=== PATIENT | female | born 1985 | race Caucasian/White ===

== ENCOUNTER 2017-06-08 20:02 | Emergency (ER) | payer OTHER ==
[~2017-06-08] VITALS: Ht 167.6 cm; Wt 85.6 kg
[~2017-06-08 20:02] MED LIST: CIPRO500 MG PO; FLAGYL500 MG PO; K-DUR20 MEQ PO; NO MEDS; NOHOMEMEDS; NORCO 5/3251 TABLET PO; PREDNISONE20 MG PO; PRILOSEC40 MG PO; ULTRAM50 MG PO; ZOFRAN ODT4 MG PO
[2017-06-08 20:41] LABS: HEMATOCRIT 40.5 % (36.0-46.0); MCH 30.6 PG (29.0-34.0); MCHC 33.8 G/DL (30.0-36.0); MCV 90.6 FL (83-99); MEAN PLAT.VOLUME 10.7 uM^3 (9.5-12.4); PLATELET COUNT 298 K/uL (156-360); RBC DIS.WIDTH-CV 12.2 % (11.8-14.6); RBC DIS.WIDTH-SD 40.5 % (39-53); RED BLOOD COUNT 4.47 M/uL (3.80-5.20); WHITE BLOOD COUNT 4.4 K/uL (4.1-10.2)
[2017-06-08 20:52] LABS: CHLORIDE 108 mEq/L (99-109); POTASSIUM 3.2 mEq/L (3.7-5.4); SODIUM 140 mEq/L (136-147)
[2017-06-08 20:54] LABS: GLUCOSE 101 mg/dL (70-99)
[2017-06-08 20:55] LABS: ANION GAP 10 MEQ/L (2-14)
[2017-06-08 20:56] LABS: TOTAL BILIRUBIN 0.3 mg/dL (0.0-1.0)
[2017-06-08 20:57] LABS: ALKALINE PHOSPHATASE 44 IU/L (3-129)
[2017-06-08 20:58] LABS: GFR ESTIMATE (CALCULATED) > 59 mL/min/
[2017-06-08 20:59] LABS: UREA NITROGEN (BUN) 7 mg/dL (9-23)
[2017-06-08 21:07] LABS: QUANTITATIVE HCG < 4.0 MIU/ML
[2017-06-08 21:34] LABS: ADD MIUA? YES; BILIRUBIN NEGATIVE; BLOOD SMALL; COLOR YELLOW ((YELLOW)); GLUCOSE (STRIP) NEGATIVE; KETONES NEGATIVE; LEUKOCYTES TRACE; NITRITE NEGATIVE; PROTEIN (STRIP) 30; SPECIFIC GRAVITY 1.024 (1.000-1.030); UROBILINOGEN 0.2 MG/DL (0.2-1.0)
[2017-06-08 22:01] LABS: BACTERIA 1+ /HPF; CASTS NONE SEEN /LPF; CRYSTALS NONE SEEN; EPITHELIAL CELLS 1+ /HPF; MUCUS 3+ /LPF; UCUL ADDED? NO; WHITE BLOOD CELLS 0-5 /HPF (0-5)
[2017-06-08] MEDS ORDERED: BENTYL10 MG PO (22:40)
[2017-06-08] MEDS ORDERED: COLACE100 MG PO (22:40)
[2017-06-08] MEDS ORDERED: ZOFRAN4 MG PO (22:51)
[2017-06-08 23:03] VITALS: BP 113/76
== END 2017-06-08 23:06 | disposition home or self-care (01) ==
LOC: EXP 20:02 → EME 20:02 → EXP 23:06
DX: R10.10 Upper abdominal pain, unspecified (principal); J45.909 Unspecified asthma, uncomplicated; G43.909 Migraine, unspecified, not intractable, without status migrainosus; F17.200 Nicotine dependence, unspecified, uncomplicated
CPT/HCPCS: 74176; 80053; 81003; 84702; 85027; 93005; 99281; 99284

== ENCOUNTER 2018-03-24 10:56 | Emergency (ER) | payer OTHER ==
[~2018-03-24] VITALS: Ht 167.6 cm; Wt 82.1 kg
[~2018-03-24 10:56] MED LIST changes: +BENTYL10 MG PO; +COLACE100 MG PO; +ZOFRAN4 MG PO
[2018-03-24 11:13] LABS: HEMATOCRIT 39.1 % (36.0-46.0); HEMOGLOBIN 13.6 G/DL (11.9-15.5); MCH 31.9 PG (29.0-34.0); MCHC 34.8 G/DL (30.0-36.0); MCV 91.8 FL (83-99); RBC DIS.WIDTH-SD 43.8 % (39-53); RED BLOOD COUNT 4.26 M/uL (3.80-5.20)
[2018-03-24 11:24] LABS: ALBUMIN 4.5 g/dL (3.2-4.8); CHLORIDE 108 mEq/L (99-109); SODIUM 142 mEq/L (136-147)
[2018-03-24 11:27] LABS: GLUCOSE 93 mg/dL (70-99); TOTAL PROTEIN 6.8 g/dL (6.4-8.3)
[2018-03-24 11:29] LABS: TOTAL BILIRUBIN 0.4 mg/dL (0.0-1.0)
[2018-03-24 11:30] LABS: ALKALINE PHOSPHATASE 38 IU/L (3-129); CREATININE 0.7 mg/dL (0.6-1.3); GFR ESTIMATE (CALCULATED) > 59 mL/min/
[2018-03-24 11:31] LABS: UREA NITROGEN (BUN) 10 mg/dL (9-23)
[2018-03-24 11:32] LABS: AST (GOT) 12 IU/L (2-34)
[2018-03-24 11:33] LABS: ALT (GPT) 10 IU/L (3-49)
[2018-03-24 11:41] LABS: QUANTITATIVE HCG < 4.0 MIU/ML
[2018-03-24 11:47] LABS: APPEARANCE CLEAR ((CLEAR)); BILIRUBIN NEGATIVE; BLOOD SMALL; COLOR YELLOW ((YELLOW)); GLUCOSE (STRIP) NEGATIVE; KETONES NEGATIVE; LEUKOCYTES NEGATIVE; NITRITE NEGATIVE; PROTEIN (STRIP) NEGATIVE; SPECIFIC GRAVITY 1.019 (1.000-1.030); UROBILINOGEN 0.2 MG/DL (0.2-1.0)
[2018-03-24 11:52] LABS: BACTERIA NONE SEEN /HPF; EPITHELIAL CELLS 1+ /HPF; MUCUS TRACE /LPF; RED BLOOD CELLS 0-5 /HPF (0-5); UCUL ADDED? NO; WHITE BLOOD CELLS 0-5 /HPF (0-5)
[2018-03-24 11:58] LABS: PLAT.SUFFICIENCY ADEQUATE; PLATELET COUNT 275 K/uL (156-360)
[2018-03-24] MEDS ORDERED: CIPRO500 MG PO (13:28)
[2018-03-24] MEDS ORDERED: FLAGYL500 MG PO (13:28)
[2018-03-24] MEDS ORDERED: ZOFRAN4 MG PO (13:28)
[2018-03-24 13:56] VITALS: BP 94/59
== END 2018-03-24 13:56 | disposition home or self-care (01) ==
LOC: EME 10:56
DX: K57.32 Diverticulitis of large intestine without perforation or abscess without bleeding (principal); R42 Dizziness and giddiness; R31.9 Hematuria, unspecified; F17.200 Nicotine dependence, unspecified, uncomplicated
CPT/HCPCS: 74176; 80053; 81003; 84702; 85027; 99281; 99284; J1885